=== PATIENT | female | born 1985 | race Caucasian/White ===

== ENCOUNTER 2017-05-25 05:50 | Day surgery (SDC) | payer MEDICAID ==
[2017-05-25] MEDS ORDERED: PROPOFOL 20 ML (07:11)
[2017-05-25] MEDS ORDERED: FENTAnyl 50 MCG/ML VIAL (07:12)
[2017-05-25] MEDS ORDERED: MIDAZOLAM 1 MG/ML 2 ML INJ (07:12)
[2017-05-25] MEDS: LACTATED RINGER'S 1,000 ML IV* (07:30)
[2017-05-25] MEDS: CEFAZOLIN 2 GM/50 ML (PMX) 50 ML IVPB (07:40)
[2017-05-25] MEDS ORDERED: CEFAZOLIN 1 GM INJ (07:50)
[2017-05-25] MEDS ORDERED: DEXAMETHASONE 4 MG/ML 1 ML INJ (07:59)
[2017-05-25] MEDS ORDERED: METOCLOPRAMIDE 10 MG INJ (07:59)
[2017-05-25] MEDS ORDERED: KETOROLAC 30 MG INJ (07:59)
[2017-05-25] MEDS ORDERED: ONDANSETRON 4 MG INJ (07:59)
[2017-05-25] MEDS ORDERED: MEPERIDINE 25 MG INJ IV (08:30)
[2017-05-25] MEDS ORDERED: DIPHENHYDRAMINE 50 MG INJ IV (08:30)
[2017-05-25] MEDS ORDERED: ONDANSETRON 4 MG INJ IV (08:30)
[2017-05-25] MEDS ORDERED: METOCLOPRAMIDE 10 MG INJ IV (08:30)
[2017-05-25] MEDS ORDERED: FENTAnyl 50 MCG/ML VIAL IV ×3 (08:30)
[2017-05-25] MEDS ORDERED: EPHEDrine SULFATE 50 MG/5 ML SYG IV (08:30)
== END 2017-05-25 11:00 | disposition home or self-care (01) ==
LOC: SDS 05:50
DX: Z30.2 Encounter for sterilization (principal)
CPT/HCPCS: 58565; 84703